=== PATIENT | female | born 2000 | race Caucasian/White ===

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

== ENCOUNTER 2021-10-09 13:38 | Emergency (ER) | payer BC, OTHER, SELFPAY ==
--- NOTE | 2021-10-09 13:56 | ED.WOUNDLAC ---
HPI - Wound/Laceration General Chief Complaint: Skin/Abscess/Foreign Body Stated Complaint: insect bite Time Seen by Provider: 10/09/21 13:56 Source: patient Mode of arrival: ambulatory Limitations: no limitations History of Present Illness HPI narrative: 21-year-old female presented for complaint of insect bite on the left upper thigh. First noticed yesterday after being outdoors for 2 days. States the redness has increased in size. This morning appeared to be bullseye then became all red and round. Denies removing a tick. States it is mildly itching, burning, denies significant pain or drainage to the site. She has not applied anything to the site. Denies any other sites of skin changes. Related Data Allergies Allergy/AdvReac Type Severity Reaction Status Date / Time Sulfa (Sulfonamide Allergy Intermediate Rash Verified 10/09/21 13:59 Antibiotics) clavulanic acid Allergy Mild Rash Verified 10/09/21 13:59 AMOXICILLIN TRIHYDRATE Allergy Mild Rash Uncoded 10/09/21 13:59 POTASSIUM CLAVULANATE Allergy Mild Vomiting Uncoded 10/09/21 13:59 Review of Systems Review of Systems: CONSTITUTIONAL: Denies body aches, fever, chills, or sweats. EYES: Denies visual changes, redness, or discharge. ENT: Denies rhinorrhea, congestion CARDIOVASCULAR: Denies chest pain, palpitations, or edema. RESPIRATORY: Denies cough or dyspnea. GASTROINTESTINAL: Denies abdominal pain, nausea, vomiting, or diarrhea. SKIN: Reports red, round itching MUSCULOSKELETAL: Denies back pain, joint pain, or myalgia. NEUROLOGIC: Denies headache, numbness, tingling, or weakness. PMFSH Comments At time of signature, I have reviewed and agree with nursing past medical, surgical, social and family history unless otherwise noted. Please see nursing chart for further information. There is no relevant family history pertinent to the presenting complaint Exam Narrative: GENERAL: Well-appearing EYES: conjunctivae clear, and EOMI. ENT: Mucous membranes moist. NECK: Supple. No lymphadenopathy CHEST: Clear to auscultation. No respiratory distress. HEART: Regular rate and rhythm. SKIN: Warm, dry. 9x7cm diameter erythematous round raised indurated area to left upper lateral thigh with tender center warm, no fluctuance or active drainage, no open areas NEURO: Alert and oriented x3. PSYCH: Normal mood and affect Course Course Emergency Course: Patient is aware of diagnosis, understands and agrees to treatment plan. Anticipatory guidance given. Patient agrees to follow-up as directed and is aware of reasons to seek care at the emergency department. Portions of this record may have been created with voice recognition software Level of Care: Express Care Visit Vital Signs Vital signs: Vital Signs Temperature 98.2 F 10/09/21 13:59 Pulse Rate 108 H 10/09/21 13:59 Respiratory Rate 16 10/09/21 13:59 Blood Pressure 126/82 10/09/21 13:59 Pulse Oximetry 100 10/09/21 13:59 Oxygen Delivery Room Air 10/09/21 13:59 Temperature 98.2 F 10/09/21 14:00 Pulse Rate 108 H 10/09/21 14:00 Respiratory Rate 16 10/09/21 14:00 Blood Pressure 126/82 10/09/21 14:00 Pulse Oximetry 100 10/09/21 14:00 Oxygen Delivery Room Air 10/09/21 14:00 Reviewed MDM - Wound/Laceration MDM Narrative Medical decision making narrative: Advised supportive measures for cellulitis, Rx reviewed, and signs/symptoms to go to the ER. Pt is . Pt is appropriate for outpt treatment and f/u. Differential Diagnosis Differential diagnosis: Likely abscess and other (dermatitis, insect sting, cellulitis) Discharge Plan Discharge Clinical Impression: Insect bites Qualifiers: Encounter type: initial encounter Site of insect bite: unspecified site Qualified Code(s): W57.XXXA - Bitten or stung by nonvenomous insect and other nonvenomous arthropods, initial encounter Patient Disposition: Home, Self-Care Condition: Stable Instructions: Antibiotic Form,
[2021-10-09 13:59] VITALS: BP 126/82; PULSE 108; RESP 16; TEMP 36.8; O2SAT 100
[2021-10-09 14:00] VITALS: BP 126/82; PULSE 108; RESP 16; TEMP 36.8; O2SAT 100
== END 2021-10-09 14:23 | disposition home or self-care (01) ==
PROVIDERS: Emergency Provider Nurse Practitioner Family
DX: S70.362A Insect bite (nonvenomous), left thigh, initial encounter (principal); W57.XXXA Bitten or stung by nonvenomous insect and other nonvenomous arthropods, initial encounter
CPT/HCPCS: 99213; G0463